=== PATIENT | female | born 1985 | race Caucasian/White ===

== ENCOUNTER 2020-11-20 09:31 | Outpatient (CLI) | payer OTHER ==
--- NOTE | 2020-11-20 10:09 | ULT ---
Pelvic sonogram transabdominal and transvaginal imaging with duplex evaluation HISTORY: Pelvic pain. FINDINGS: Urinary bladder has normal appearance. Uterus has a heterogeneous echotexture and is 7.6 cm . Endometrium is 0.9 cm. Physiologic amount of free fluid within the pelvis. Right ovary is 3.5 cm with follicles and shows good color and spectral Doppler flow. Left ovary is 2. 6 cm on transabdominal imaging. No abnormalities. Not well seen on transvaginal imaging. IMPRESSION : No abnormalities are demonstrated.
== END 2020-11-20 09:32 | disposition home or self-care (01) ==
LOC: BICULT 09:31
PROVIDERS: ATTEND Physician Assistant Medical
DX: R10.2 Pelvic and perineal pain (principal)
CPT/HCPCS: 76856

== ENCOUNTER 2022-05-31 12:13 | Outpatient (CLI) | payer BC | END 2022-05-31 12:14 | disposition home or self-care (01) | LOC: BICULT 12:13 | PROVIDERS: ATTEND Nurse Practitioner Family | DX: E04.2 Nontoxic multinodular goiter (principal) | CPT/HCPCS: 76536 ==